=== PATIENT | female | born 1990 | race Caucasian/White ===

== ENCOUNTER 2016-09-27 22:57 | Emergency (ER) | payer OTHER | END 2016-09-28 02:00 | disposition left against medical advice (07) | LOC: ER1 22:57 | DX: Z53.21 Procedure and treatment not carried out due to patient leaving prior to being seen by health care provider (principal) ==

== ENCOUNTER 2016-10-04 02:09 | Emergency (ER) | payer OTHER ==
[2016-10-04 04:10] LABS: HEMOGLOBIN 12.2 gm/dl (12.3-15.3); RED BLOOD COUNT 3.94 M/UL (4.00-5.10); WHITE BLOOD COUNT 4.3 K/UL (4.5-11.0)
[2016-10-04 04:52] LABS: BUN/CREATININE RATIO 24 (0-10)
== END 2016-10-04 04:50 | disposition left against medical advice (07) ==
LOC: ER1 02:09 → ZEROF 04:37
PROVIDERS: Student in an Organized Health Care Education/Training Program
DX: R56.9 Unspecified convulsions (principal); I10 Essential (primary) hypertension; G89.4 Chronic pain syndrome; F17.210 Nicotine dependence, cigarettes, uncomplicated; Z86.69 Personal history of other diseases of the nervous system and sense organs; Z86.59 Personal history of other mental and behavioral disorders; Z90.49 Acquired absence of other specified parts of digestive tract; Z88.6 Allergy status to analgesic agent; Z88.8 Allergy status to other drugs, medicaments and biological substances; Z79.899 Other long term (current) drug therapy
CPT/HCPCS: 36415; 80053; 82550; 82553; 83735; 83874; 84484; 84703; 85025; 93005; 99285; G0378; G0480; J1200; J2765; J7030

== ENCOUNTER → 2016-10-17 | Outpatient (CLI) | payer OTHER ==
[2016-10-17 10:24] LABS: HEMOGLOBIN 13.4 gm/dl (12.3-15.3); RED BLOOD COUNT 4.26 M/UL (4.00-5.10); WHITE BLOOD COUNT 6.6 K/UL (4.5-11.0)
[2016-10-17 10:45] LABS: BUN/CREATININE RATIO 20 (0-10)
== END ==
LOC: LAB 09:55
DX: Z77.21 Contact with and (suspected) exposure to potentially hazardous body fluids (principal); Z79.899 Other long term (current) drug therapy
CPT/HCPCS: 36415; 80053; 80074; 84443; 84703; 85027; 87390

== ENCOUNTER 2016-10-28 00:02 | Emergency (ER) | payer OTHER | END 2016-10-28 01:30 | disposition home or self-care (01) | LOC: ER1 00:02 | DX: L03.114 Cellulitis of left upper limb (principal) | CPT/HCPCS: 99282 ==

== ENCOUNTER 2016-11-24 18:17 | Emergency (ER) | payer OTHER ==
[2016-11-24 19:35] LABS: HEMOGLOBIN 13.6 gm/dl (12.3-15.3); RED BLOOD COUNT 4.32 M/UL (4.00-5.10); WHITE BLOOD COUNT 6.6 K/UL (4.5-11.0)
[2016-11-24 19:57] LABS: BUN/CREATININE RATIO 12 (0-10)
== END 2016-11-24 21:15 | disposition home or self-care (01) ==
LOC: ER1 18:17
PROVIDERS: Emergency Medicine
DX: L02.415 Cutaneous abscess of right lower limb (principal); B95.62 Methicillin resistant Staphylococcus aureus infection as the cause of diseases classified elsewhere; R30.0 Dysuria
CPT/HCPCS: 10061; 36415; 80048; 81001; 84702; 84703; 85025; 87070; 87086; 87205; 96361; 96365; 99283